=== PATIENT | male | born 1965 | race Caucasian/White ===

== ENCOUNTER 2019-07-03 23:02 | Emergency (ER) | payer MEDICAID ==
[~2019-07-03] VITALS: Ht 167.6 cm; Wt 66.7 kg
[2019-07-03 23:05] VITALS: BP_SYST 132
--- NOTE | 2019-07-03 23:05 | NUR ---
Pt. taken to Bed #2. Placed on monitor with side rails up. Report given by BIANCA Farris for continuation of care.
--- NOTE | 2019-07-03 23:10 | NUR ---
Pt. presents to the ED BLS with c/o of head pain r/t fall that he said happened a few hours earlier and that he drank a pint of vodka today. He is A&O x3 and denies fever, n/v/c, loss of vision, sleepiness, and other symptoms at this time. Pt has open abrasions to the entire anterior aspect of the forehead. VSS. Will continue to monitor pt.
--- NOTE | 2019-07-03 23:10 | NUR ---
Note undone in EDM - 07/03/19 at 2337 by BHARATHI Pt. presents to the ED BLS with c/o of head pain r/t fall that he said happened a few hours earlier. He is A&O x3 and denies fever, n/v/c, loss of vision, sleepiness, and other symptoms at this time. Pt has open abrasions to the entire anterior aspect of the forehead. VSS. Will continue to monitor pt.
--- NOTE | 2019-07-03 23:15 | NUR ---
Pt. off unit to radiology accompanied by radiology assistant via [employer].
--- NOTE | 2019-07-03 23:20 | NUR ---
ER Dr. Coburn at bedside examining patient.
--- NOTE | 2019-07-04 00:08 | NUR ---
Unsuccessful attempt to place IV angio x 2. BIANCA Patel will attempt. Will continue to monitor.
--- NOTE | 2019-07-04 00:13 | NUR ---
Unsuccesful attempts x2 to start IV. Pt Uncooperative.
--- NOTE | 2019-07-04 00:15 | NUR ---
notified that patient is refusing IV at this time. Patient requesting blood draw only. MD notified. Will continue to monitor
[2019-07-04 00:24] LABS: HEMOGLOBIN 15.2 g/dL (14.0-18.0); MEAN CORPUSCULAR HGB CONC 34 % (32-36); RED CELL DISTRIBUTION WIDTH 14.3 % (9.0-15.0)
[2019-07-04 00:29] LABS: BASOPHILS # (AUTO) 0.1 K/uL (0.0-0.2); BASOPHILS % (AUTO) 1.1 % (0.0-2.0); EOSINOPHILS # (AUTO) 0.1 K/uL (0.0-0.4); EOSINOPHILS % (AUTO) 2.3 % (0.0-4.0); LYMPHOCYTES # (AUTO) 1.8 K/uL (1.0-5.5); LYMPHOCYTES % (AUTO) 35.9 % (20.5-51.5); MEAN CORPUSCULAR HEMOGLOBIN 33 pg (27-31); MEAN CORPUSCULAR VOLUME 98 fL (79.0-98.0); MONOCYTES # (AUTO) 0.5 K/uL (0.0-1.0); NEUTROPHILS # (AUTO) 2.7 K/uL (1.8-7.7); NEUTROPHILS % (AUTO) 51.7 % (40.0-70.0); PLATELET COUNT (AUTO) 185 K/uL (130-430); RED BLOOD CELL COUNT(AUTO) 4.59 MIL/uL (4.2-6.2); WHITE BLOOD COUNT (AUTO) 5.1 K/uL (4.8-10.8)
[2019-07-04 00:34] LABS: CALCIUM 8.7 mg/dL (8.4-11.0); CREATININE 0.79 mg/dL (0.55-1.30)
[2019-07-04 00:38] LABS: INR 1.2 (0.80-1.20); PROTHROMBIN TIME 11.8 SECS (9.5-12.5)
[2019-07-04 00:39] LABS: ALBUMIN 3.9 g/dL (3.4-4.8); TOTAL BILIRUBIN 0.3 mg/dL (0.0-1.0)
--- NOTE | 2019-07-04 02:10 | NUR ---
DR. TAFOYA ON PHONE WITH [facility] FOR POSSIBLE TRANSFER.
--- NOTE | 2019-07-04 02:12 | NUR ---
PATIENT IS SLEEPING IN BED COMFORTABLE. VITAL SIGNS STABLE.
--- NOTE | 2019-07-04 02:20 | NUR ---
Dr. Coburn on phone with [facility] for possible transfer.
--- NOTE | 2019-07-04 03:10 | NUR ---
# 18 gauge angiocath placed to RFA. Use of asceptic technique. Opsite placed over site. Blood return noted. Flushed with 10 cc of normal saline. No evidence of infiltration noted. Patient tolerated well.
[2019-07-04] MEDS ORDERED: NS 500 ML IV ONE (03:45)
--- NOTE | 2019-07-04 03:58 | NUR ---
[facility] denied transfer to their emergency room. notified.
--- NOTE | 2019-07-04 04:05 | NUR ---
Patient to be transferred to [facility]. Is being transferred due to higher level of care. Receiving facility has accepting physician and available space. ER physician has signed transfer form. Patient or responsible republican has agreed to transfer and signed form. Patient belongings inventoried and will be sent with patient. Copy of nursing notes, lab reports, EKG, Physicians Orders and X-rays to be sent with patient. Report called to BIANCA Quinonez at receiving facility. Receiving physician is Dr. Ryan. [facility] has been called for transfer. ETA is [id number].
[2019-07-04 04:22] VITALS: BP_SYST 118
--- NOTE | 2019-07-04 04:22 | NUR ---
[facility] ARRIVES TO TRANSFER PATIENT TO [facility].
== END 2019-07-04 04:22 | disposition short-term general hospital (02) ==
LOC: SED 23:02
DX: S32.009A Unspecified fracture of unspecified lumbar vertebra, initial encounter for closed fracture (principal); S22.9XXA Fracture of bony thorax, part unspecified, initial encounter for closed fracture; S09.90XA Unspecified injury of head, initial encounter; F17.200 Nicotine dependence, unspecified, uncomplicated; F10.20 Alcohol dependence, uncomplicated; W17.89XA Other fall from one level to another, initial encounter; Y93.89 Activity, other specified; Y92.811 Bus as the place of occurrence of the external cause; Y99.8 Other external cause status
CPT/HCPCS: 36415; 70450; 71045; 72125; 72128; 72131; 80053; 85025; 85610; 85730; 99285; G0482; J7030